=== PATIENT | female | born 1950 | race Caucasian/White ===

== ENCOUNTER 2021-07-24 19:20 | Inpatient (IN) | payer OTHER ==
--- OUTSIDE RECORDS SUMMARY | 2021-07-24 19:23 | XMS REPORT | Continuity of Care Document ---
:[address] [facility] t Address [address] [place] [address] Dr. Turner [address] [place] [id number] Care Team Providers Name Role Phone Jorge Luisu_P Attending Clinician Unavailable Jorge Luisu_P Admitting Clinician Unavailable Problems This patient has no known problems. Allergies, Adverse Reactions, Alerts This patient has no known allergies or adverse reactions. Medications This patient has no known medications. Procedures This patient has no known procedures. Encounters Start End Encounter Admission Attending Care Care Encounter Source Date/Time Date/Time Type Type Clinicians Facility Department ID 2020-05-20 2020-05-20 Outpatient [id number] [place] 12:44:00 12:44:00 [facility] Results This patient has no known results.
[2021-07-24] MEDS ORDERED: GUAIFENESIN/DM 5 ML UCUP PO PRN (21:39)
[2021-07-24] MEDS ORDERED: ONDANSETRON 4 MG/2 ML VIAL IV PRN (21:39)
[2021-07-24 22:27] VITALS: BMI 23.3
[2021-07-24 22:34] LABS: Absolute Lymphocytes (CBC) 0.7 K/uL (0.7-4.9); Hematocrit 33.9 % (36.0-45.0); Lymphocytes % 11.9 % (15.3-44.8); MPV 8.7 fL (7.6-11.3); RBC Red Blood Cell Count 3.87 M/uL (3.86-4.86)
[2021-07-24 22:49] LABS: ALT/SGPT 51 U/L (12-78); AST/SGOT 78 U/L (15-37); Albumin 2.5 g/dL (3.4-5.0); Alkaline Phosphatase 75 U/L (45-117); BUN Blood Urea Nitrogen 15 mg/dL (7-18); Bicarbonate 27 mmol/L (21-32); Bilirubin Total 0.4 mg/dL (0.2-1.0); Glucose Level 113 mg/dL (74-106); Potassium 3.2 mmol/L (3.5-5.1); Protein, Total 6.8 g/dL (6.4-8.2); Sodium Level 133 mmol/L (136-145)
[2021-07-24] MEDS ORDERED: POTASSIUM CL SA 10 MEQ TAB PO ONE (22:51)
[2021-07-24] MEDS: Levofloxacin500mg IV 500 MG/100 ML BAG IV SCH (23:13)
[2021-07-24] MEDS: LORAZEPAM 0.5 MG TABLET PO SCH (23:13)
[2021-07-24] MEDS: NA CHLORIDE 0.9% 1,000 ML IV SCH (23:15)
[2021-07-25 05:09] LABS: BUN Blood Urea Nitrogen 11 mg/dL (7-18); Bicarbonate 26 mmol/L (21-32); Glucose Level 123 mg/dL (74-106); Potassium 3.4 mmol/L (3.5-5.1); Sodium Level 135 mmol/L (136-145)
[2021-07-25] MEDS ORDERED: POTASSIUM CL SA 10 MEQ TAB PO ONE (05:11)
[2021-07-25] MEDS: PANTOPRAZOLE 40MG TABLET PO SCH (05:23)
[2021-07-25] MEDS: ENOXAPARIN 30 MG/0.3 ML SQ SCH (09:21)
--- NOTE | 2021-07-25 12:08 | RAD REPORT ---
EXAM DESCRIPTION: RAD - Chest Pa And Lat (2 Views) - 07/24/2021 10:28 pm CLINICAL HISTORY: 71 years Female pneumonia TECHNIQUE: Two views of the chest. COMPARISON: No prior exams provided for comparison. FINDINGS: Diffuse right lower lobe airspace infiltrate. No pleural effusion or pneumothorax. The ekta gs are otherwise clear. Normal cardiomediastinal silhouette. No acute osseous lesion. IMPRESSION: Diffuse right lower lobe airspace infiltrate. Electronically signed by: Linda Pearson MD 07/24/2021 10:55 PM CDT Due to temporary technical issues with the PACS/Fluency reporting system, reports are being signed by the in house radiologist without review as a courtesy to ensure prompt reporting. The interpreting r adiologist is fully responsible for the content of the report.
[2021-07-25] MEDS: NA CHLORIDE 0.9% 1,000 ML IV SCH (13:57)
[2021-07-25] MEDS: ACETAMINOPHEN 500 MG TAB PO PRN (14:28)
--- NOTE | 2021-07-25 16:48 | PN ---
Date of Progress Note: 07/25/2021 Subjective: The patient was seen this morning for followup. No new complaints or problems reported by the patient. Lying in bed, not in any distress. Objective: Vital Signs: Reviewed. HEENT: Examination unremarkable. Lungs: Bilateral good equal air entry, not in any respiratory distress, but presence of rales noted in the lower one-third right lung region, unchanged from yesterday. Heart: Sounds normal. Abdomen: Soft. Bowel sounds normal. No guarding, rigidity, tenderness, distention. Extremities: No leg edema. Laboratory Data: Sodium 135, potassium 3.4, chloride 101, bicarb 26, BUN 11, creatinine 0.46, glucos e 123. Impression: 1.Pneumonia. 2.Hypokalemia. 3.Hyponatremia. Plan: We will go ahead and continue current medications. Continue current antibiotics, cough medici ne. Continue current IV fluids. Replace electrolytes per protocol. Continue DVT prophylaxis with L ovenox and physical therapy to assist her with ambulation. I will see her tomorrow for followup. We will repeat chest x-ray tomorrow. TERE/MODL Voice ID: [id number] Report ID: [id number]
--- NOTE | 2021-07-25 20:00 | HP ---
Date of Admission: 07/24/2021 Chief Complaint: Cough, shortness of breath, feeling weak. History Of Present Illness: Ms. Garland is a pleasant 71-year-old female patient who started to have some cough, congestion, and was coughing up some yellowish-colored mucus for few days, and on 022, she was evaluated via tele visit, diagnosed as having acute bronchitis and was started on amoxic illin. Her had similar symptoms and he was also treated and has felt improved, but p atient has not improved, in fact her symptoms have gotten worse now to the extent that she has very p oor appetite, feels very weak and tired, some short of breath and has dry cough. No vomiting. No di arrhea. She stays in bed most of the time since she is not feeling good and today she was brought in to office for evaluation and after she was evaluated, she was admitted to the hospital. Allergies: NO KNOWN ALLERGIES. Medications: Amoxicillin 500 mg 3 times a day, rosuvastatin 20 mg daily, lorazepam 2 mg daily at bed time, Prilosec OTC 20 mg daily, Atrovent nasal spray 2 sprays each nostril 4 times a day as needed fo r allergies, Caltrate Plus D 1 tablet 2 times a day, vitamin D3 5000 units daily. Review of Systems: Constitutional: As mentioned above. Respiratory: As mentioned above. All other systems reviewed and negative. Past Medical History: Significant for allergic rhinitis, obstructive sleep apnea, hyperlipidemia, ki dney stone, right breast cancer which was treated with lumpectomy and radiation therapy in 2008, inso mnia, osteoporosis. Past Surgical History: Significant for a right breast lumpectomy in 2008, cholecystectomy, hysterect bogdan, carpal tunnel release, arthroscopic knee surgery, and right tibia fibula fracture surgery. Family History: Father , had cirrhosis of liver due to alcohol and as a result of that. Mo ther , had hypertension and stroke. Brother had MS. Social History: Prior history of smoking, not at present time. Use of alcohol negative. Immunization History: Patient had her first dose of COVID-19 vaccine on October 16, 2020, and November 17, . Physical Examination: Vital Signs: Temperature 99.4, pulse 90, respiratory rate 18, blood pressure 126/64, oxygen saturati on 94%. Height 5 feet 2 inches, weight 127 pounds. General: Patient appears weaker than normal, not in any respiratory distress. HEENT: Head atraumatic, normocephalic. Conjunctivae nonerythematous. Sclerae white. Mouth, no thr ush or edema noted. Ears/Nose, no mass, lesion, discharge noted. Neck: Supple. No JVD, lymph nodes, bruit, thyromegaly noted. Lungs: Shows presence of rales in right lower one-third lung region. Not using any accessory muscle s of respiration at rest. Heart: Normal heart sounds, no murmur or gallop. Abdomen: Soft, bowel sounds normal. No guarding, rigidity, tenderness, mass, hepatosplenomegaly, dis tention, or bruit noted. Extremities: No leg edema. No calf tenderness. Skin: No rash, ulcer, cellulitis. Lymphatics: No lymph node enlargement in neck, supraclavicular, infraclavicular region. Neuro: No focal neurological deficit. Chest: Unremarkable. External Genitalia: Deferred. Rectal: Deferred. Laboratory Data: COVID-19 test negative. Chest x-ray shows right lower lobe infiltrate. White coun t 5.6, hemoglobin 11.6, platelets 203. Sodium 133, potassium 3.2, chloride 95, bicarb 27, BUN 15, cr eatinine 0.52, glucose 113, AST 78, procalcitonin 0.48, lactic acid 2. Impression: 1.Pneumonia. 2.Anemia, unspecified. 3.Hypokalemia. 4.Abnormal liver function test. 5.Allergic rhinitis. 6.Obstructive sleep apnea. 7.Hyperlipidemia. 8.Right breast cancer. 9.Insomnia. Plan: We will go ahead and admit the patient to hospital for further evaluation and management of th is problem. Patient is appropriate for inpatient and is expected to spend 2 midnights in hospital. We will continue home medications per order. Follow up on blood culture results. Replace electrolyt e per protocol. Start the patient on empiric antibiotic, Levaquin and DVT prophylaxis using Lovenox and SCD was ordered. Fall precaution was ordered. I will see her tomorrow for followup. Details an d plan of treatment discussed with the patient. TERE/MODL Voice ID: [id number]
[2021-07-25] MEDS: LORAZEPAM 0.5 MG TABLET PO SCH (21:50)
[2021-07-25] MEDS: Levofloxacin500mg IV 500 MG/100 ML BAG IV SCH (21:50)
[2021-07-25] MEDS: ROSUVASTATIN 10 MG TAB PO SCH (21:50)
[2021-07-26] MEDS: NA CHLORIDE 0.9% 1,000 ML IV SCH (03:28)
[2021-07-26] MEDS: PANTOPRAZOLE 40MG TABLET PO SCH (05:47)
[2021-07-26 05:51] LABS: BUN Blood Urea Nitrogen 6 mg/dL (7-18); Bicarbonate 26 mmol/L (21-32); Glucose Level 107 mg/dL (74-106); Potassium 3.6 mmol/L (3.5-5.1); Sodium Level 138 mmol/L (136-145)
[2021-07-26] MEDS: ACETAMINOPHEN 500 MG TAB PO PRN (08:34)
[2021-07-26] MEDS: ENOXAPARIN 30 MG/0.3 ML SQ SCH (08:35)
[2021-07-26] MEDS ORDERED: POTASSIUM CL SA 10 MEQ TAB PO ONE (09:00)
--- NOTE | 2021-07-26 12:16 | RAD REPORT ---
EXAM DESCRIPTION: RAD - Chest Pa And Lat (2 Views) - 07/26/2021 12:01 pm CLINICAL HISTORY: pneumonia COMPARISON: Chest Pa And Lat (2 Views) dated 07/24/2021; CHEST PA AND LAT 2 VIEW dated 06/14/2008 FINDINGS: Lines: None. Lungs: Irregular airspace disease at the right lung base unchanged since 07/24/2021 Pleural: No significant pleural effusions or pneumothorax. Cardiac: The heart size is within normal limits. Bones: No acute fractures. Other: IMPRESSION: No change in right basilar airspace disease, presumably pneumonia.
[2021-07-26] MEDS: Levofloxacin500mg IV 500 MG/100 ML BAG IV SCH (12:43)
--- NOTE | 2021-07-26 13:41 | RAD REPORT ---
EXAM DESCRIPTION: CT - Thorax Wo Con - 07/26/2021 1:21 pm CLINICAL HISTORY: pneumonia COMPARISON: <Comparisons> FINDINGS: Chest Wall: Calcified right breast nodules which are benign. Lungs: Irregular nodular ground-glass opacities are present within the right lower lobe. There is a m ore focal mass type area more superiorly in the right lower lobe measuring proximally 2.5 cm. Small a reas of consolidation present in the more inferior aspect of the right lower lobe. The right upper lo be and right middle lobe are clear. Pleura: Small right pleural effusion . Mediastinum/kian: No pathologic lymphadenopathy. Pulmonary arteries/Aorta: Limited evaluation without contrast. No aortic aneurysm. Heart: No significant pericardial effusion. Normal heart size. Upper abdomen: No acute abnormality. Bones: No acute abnormality. All CT scans are performed using dose optimization technique as appropriate and may include automated exposure control or mA/KV adjustment according to patient size. IMPRESSION: Irregular opacities with other areas of more masslike consolidation in the right lower l obe. This is presumably pneumonia such as from a bacterial etiology. The differential includes neopla sm with lymphangitic spread of tumor among other less common causes. For this reason, radiographic fo llow-up in 4-6 weeks is recommended to re-assess.
[2021-07-26] MEDS: PIPER TAZO 3.375 GM in NA CHLORIDE 0.9% 100 ML IV SCH ×2 (15:44→22:11)
--- NOTE | 2021-07-26 17:01 | PN ---
Date of Progress Note: 07/26/2021 Subjective: The patient was seen this morning for followup. She is feeling better. Ambulating well without any shortness of breath. Objective: Vital Signs: Reviewed. HEENT: Unremarkable. Lungs: Bilateral good equal air entry. Clear to auscultation. No rales. Very small area of dimini shed air entry in the right lung base, but overall much better than before. Heart: Sounds normal. Abdomen: Soft. Bowel sounds normal. No guarding, rigidity, tenderness, or distention. Extremities: No leg edema. Impression: 1.Pneumonia. 2.Insomnia. Plan: We will go ahead and continue current medication. Continue current antibiotics. She is on Le vaquin and last dose was 10 p.m. last night. I have asked nursing staff to give her next Levaquin do se around noontime today. We will get a chest x-ray done today and I will review that. Depending on the chest x-ray result, we will decide if we can discharge her to go home this afternoon or not. He r blood work today; sodium 138, potassium 3.6, chloride 105, bicarb 26, BUN 6, creatinine 0.37, gluco se 107. TERE/MODL Voice ID: [id number] Report ID: [id number]
[2021-07-26] MEDS: LORAZEPAM 0.5 MG TABLET PO SCH (22:11)
[2021-07-26] MEDS: ROSUVASTATIN 10 MG TAB PO SCH (22:11)
[2021-07-27 04:35] LABS: BUN Blood Urea Nitrogen 9 mg/dL (7-18); Bicarbonate 27 mmol/L (21-32); Glucose Level 113 mg/dL (74-106); Potassium 3.8 mmol/L (3.5-5.1); Sodium Level 138 mmol/L (136-145)
[2021-07-27] MEDS ORDERED: POTASSIUM CL SA 10 MEQ TAB PO ONE (06:00)
[2021-07-27] MEDS: PANTOPRAZOLE 40MG TABLET PO SCH (06:26)
[2021-07-27] MEDS: PIPER TAZO 3.375 GM in NA CHLORIDE 0.9% 100 ML IV SCH (06:27)
[2021-07-27] MEDS: ENOXAPARIN 30 MG/0.3 ML SQ SCH (07:48)
[2021-07-27 08:32] VITALS: O2SAT 96
[2021-07-27] MEDS: Levofloxacin500mg IV 500 MG/100 ML BAG IV SCH (12:03)
--- NOTE | 2021-07-27 12:46 | DS ---
Date of Discharge: 07/27/2021 Disposition: Discharged to go home. Physical Examination: HEENT: Unremarkable. Lungs: Clear to auscultation, except minimum rales in the right lung basal region noted, overall muc h better than before. Not using any accessory muscles of respiration. Heart: Sounds normal. Abdomen: Soft. Bowel sounds normal. No guarding, rigidity, tenderness, distention. Extremities: No leg edema. Laboratory Data: Today; sodium 138, potassium 3.8, chloride 105, bicarb 27, BUN 9, creatinine 0.50, glucose 118. CAT scan of the chest from yesterday shows irregular opacities with other areas of more mass like consolidation in the right lower lobe. This is likely due to pneumonia and will need to f ollow up on it with serial x-ray. Repeat chest x-ray from yesterday also shows right basal infiltrat e. Hospital Course: This is a 71-year-old pleasant female patient admitted to the hospital with cough, shortness of breath, and feeling weak. Please see dictated H and P for more information. After she was evaluated at office, she was admitted directly to the hospital with pneumonia problem. Her COVID -19 test was negative. Chest x-ray had shown right lower lobe infiltrate and clinically she had righ t lower lobe pneumonia. Her white count was normal at 5.6 upon admission with hemoglobin 11.[address] atelets 203. Sodium 133, potassium 3.2, chloride 95, bicarb 27, BUN 15, and creatinine 0.52, glucose 113, AST 78, procalcitonin 0.48, lactic acid 2. The patient was started on IV antibiotics, which wa s Levaquin. Repeat chest x-ray was done yesterday and we will perform CAT scan of the chest, result as outlined above and this was discussed with the patient. I do not believe that there is any concer n about any malignancy and what we see changes on the x-ray as well as CAT scan is likely due to unde rlying pneumonia, but we will definitely follow up with serial chest x-ray and this was discussed wit h the patient. I have instructed her to come see me for followup at office this coming week on and not to return to work until I release her and depending on how she is on Wednesday, we will decide if we can release her to go back to work or not. We will plan to do serial chest x-ray on out patient basis for followup on the right lower lobe infiltrate. The patient overall feels better and she was discharged to go home in stable condition and she is maintaining adequate oxygenation on room air. Final Diagnoses: 1.Pneumonia. 2.Anemia, unspecified. 3.Hypokalemia. 4.Abnormal liver function tests. 5.Allergic rhinitis. 6.Obstructive sleep apnea. 7.Hyperlipidemia. 8.Right breast cancer. 9.Insomnia. Discharge Medications And Instructions: Continue all prior home medications except stop amoxicillin. Start following new medications; 1.Levaquin 500 mg daily for 10 days. Take with food. 2.Augmentin 875 mg 2 times a day for 10 days, take with food. 3.Follow up at my office next week on 07/30/2021, to call office for appointment. TERE/GAYLE Voice ID: [id number] Report ID: [id number]
[2021-07-27 12:56] VITALS: BP 102/60; TEMP 97.4
== END 2021-07-27 16:00 | disposition home or self-care (01) | DRG 194 ==
LOC: 2ND 19:20
PROVIDERS: ADMIT Internal Medicine; ATTEND Internal Medicine
DX: J18.9 Pneumonia, unspecified organism (principal); E87.1 Hypo-osmolality and hyponatremia; D64.9 Anemia, unspecified; E87.6 Hypokalemia; R94.5 Abnormal results of liver function studies; J30.9 Allergic rhinitis, unspecified; G47.33 Obstructive sleep apnea (adult) (pediatric); E78.5 Hyperlipidemia, unspecified; G47.00 Insomnia, unspecified; Z85.3 Personal history of malignant neoplasm of breast; Z20.822 Contact with and (suspected) exposure to COVID-19
CPT/HCPCS: 36415; 71046; 71250; 80048; 80053; 82947; 83605; 83735; 84132; 84145; 85025; 87040; 97116; 97161; 97530; J1650; J2543; J7030; U0003